=== PATIENT | female | born 1960 | race Two or more races ===

== ENCOUNTER 2018-06-03 09:30 | Outpatient (CLI) | payer OTHER ==
[~2018-06-03 09:30] MED LIST: SYNTHROID75 MCG PO
== END 2018-06-03 17:00 | disposition home or self-care (01) ==
LOC: RAD 09:30
DX: M20.11 Hallux valgus (acquired), right foot (principal); M20.12 Hallux valgus (acquired), left foot

== ENCOUNTER 2018-07-14 14:48 | Outpatient (CLI) | payer OTHER | END 2018-07-14 15:46 | disposition home or self-care (01) | LOC: RAD 14:48 | DX: M20.11 Hallux valgus (acquired), right foot (principal) ==

== ENCOUNTER 2018-07-19 11:55 | Outpatient (CLI) | payer OTHER | END 2018-07-19 11:59 | disposition home or self-care (01) | LOC: MAMO-SONO 11:55 | DX: Z12.31 Encounter for screening mammogram for malignant neoplasm of breast (principal); E04.1 Nontoxic single thyroid nodule ==

== ENCOUNTER 2018-10-03 18:54 | Outpatient (CLI) | payer OTHER | END 2018-10-03 19:25 | disposition home or self-care (01) | LOC: RAD 18:54 | DX: M20.11 Hallux valgus (acquired), right foot (principal) ==

== ENCOUNTER 2020-12-09 15:22 | Emergency (ER) | payer OTHER ==
[~2020-12-09] VITALS: Ht 157.5 cm; Wt 70.3 kg
[2020-12-09] MEDS ORDERED: EVISTA60 MG (16:22)
[2020-12-09] MEDS ORDERED: MECLIZINE HCL25 MG PO (19:42)
== END 2020-12-09 19:55 | disposition home or self-care (01) ==
LOC: ER 15:22
DX: R42 Dizziness and giddiness (principal)

== ENCOUNTER 2020-12-15 16:36 | Emergency (ER) | payer OTHER ==
[~2020-12-15] VITALS: Ht 157.5 cm; Wt 69.4 kg
[~2020-12-15 16:36] MED LIST changes: +EVISTA60 MG; +MECLIZINE HCL25 MG PO
[2020-12-15] MEDS ORDERED: NORFLEX100MG PO (19:32)
[2020-12-15] MEDS ORDERED: KETO10TA2 PO (19:32)
== END 2020-12-15 19:37 | disposition home or self-care (01) ==
LOC: ER 16:36
DX: J45.909 Unspecified asthma, uncomplicated (principal)

== ENCOUNTER 2021-10-02 08:48 | Outpatient (CLI) | payer OTHER ==
[~2021-10-02 08:48] MED LIST changes: +KETO10TA2 PO; +NORFLEX100MG PO
== END 2021-10-02 08:57 | disposition home or self-care (01) ==
LOC: SONOGRAMA 08:48
PROVIDERS: ATTEND Internal Medicine
DX: E03.8 Other specified hypothyroidism (principal)

== ENCOUNTER 2021-10-10 13:26 | Outpatient (CLI) | payer OTHER | END 2021-10-10 13:32 | disposition home or self-care (01) | LOC: NUCLEAR 13:26 | PROVIDERS: ATTEND Pathology Anatomic Pathology | DX: M81.0 Age-related osteoporosis without current pathological fracture (principal) ==

== ENCOUNTER 2022-04-22 13:19 | Outpatient (CLI) | payer OTHER | END 2022-04-22 13:37 | disposition home or self-care (01) | LOC: MRI 13:19 | PROVIDERS: ATTEND Specialist | DX: G57.61 Lesion of plantar nerve, right lower limb (principal); M65.872 Other synovitis and tenosynovitis, left ankle and foot | CPT/HCPCS: 73720 ==

== ENCOUNTER 2023-03-15 15:00 | Outpatient (CLI) | payer OTHER | END 2023-03-15 15:06 | disposition home or self-care (01) | LOC: RAD 15:00 | PROVIDERS: ATTEND Internal Medicine | DX: I10 Essential (primary) hypertension (principal); M54.59 Other low back pain ==

== ENCOUNTER 2023-03-16 08:20 | Outpatient (CLI) | payer OTHER | END 2023-03-16 08:49 | disposition home or self-care (01) | LOC: SONOGRAMA 08:20 | PROVIDERS: ATTEND Internal Medicine | DX: R10.84 Generalized abdominal pain (principal); K76.0 Fatty (change of) liver, not elsewhere classified ==

== ENCOUNTER 2023-03-31 16:36 | Outpatient (CLI) | payer OTHER | END 2023-03-31 23:00 | disposition home or self-care (01) | LOC: RAD 16:36 | PROVIDERS: ATTEND Internal Medicine | DX: M25.562 Pain in left knee (principal); M25.561 Pain in right knee ==

== ENCOUNTER 2023-04-28 15:08 | Outpatient (CLI) | payer OTHER | END 2023-04-28 15:48 | disposition home or self-care (01) | LOC: MRI 15:08 | PROVIDERS: ATTEND Internal Medicine | DX: M25.562 Pain in left knee (principal); J47.9 Bronchiectasis, uncomplicated | CPT/HCPCS: 73721 ==

== ENCOUNTER 2024-01-04 08:11 | Outpatient (CLI) | payer OTHER | END 2024-01-04 08:24 | disposition home or self-care (01) | LOC: SONOGRAMA 08:11 | PROVIDERS: ATTEND Specialist | DX: E03.9 Hypothyroidism, unspecified (principal); E04.9 Nontoxic goiter, unspecified ==

== ENCOUNTER 2024-12-11 08:13 | Outpatient (CLI) | payer OTHER | END 2024-12-11 08:19 | disposition home or self-care (01) | LOC: SONOGRAMA 08:13 | PROVIDERS: ATTEND Internal Medicine Gastroenterology | DX: R10.31 Right lower quadrant pain (principal) ==